=== PATIENT | female | born 1995 | race Caucasian/White ===

== ENCOUNTER 2018-06-22 19:15 | Emergency (ER) | payer OTHER ==
--- OUTSIDE RECORDS SUMMARY | 2018-06-22 20:00 | XMS REPORT | Continuity of Care Document ---
:1995 External Reference #:[id number] Author Name ERIK Mobley Address [address] [place] [address] [place] [address] Care Team Providers Name Role Phone No PCP Primary Care Physician Unavailable Payers Type Date Identification Numbers Payment Provider Subscriber Policy Number: [id number] [employer] Martina Wilson PayID: [id number] [address] [address] [place] [address] Advance Directives Description No Information Available Problems Description No Information Family History Date Family Member(s) Problem(s) Comments General Diabetes Father's side General Hypertension Mom's side Social History Type Date Description Comments Sex Unknown ETOH Use Occasionally consumes alcohol Tobacco Use Start: Unknown Patient has never smoked Smoking Status Reviewed: 06/18/18 Patient has never smoked Allergies, Adverse Reactions, Alerts Description No Known Drug Allergies Medications Medication Date Status Form Strength Qnty SIG Indications Ordering Provider Apriso Active Caps ER 0.375gm Unknown 000 24HR Prednisone Active Tablets 20mg once a day Unknown 000 Zyrtec Active Capsules 10mg take one Unknown Allergy 000 per day Sprintec 28 Active Tablets 0.25-35mg- as Unknown 000 mcg directed Iron Active Tablets Unknown 000 Immunizations Description No Information Available Vital Signs Date Vital Result Comment 06/18/2018 4:45pm BP Systolic 130 mmHg BP Diastolic 87 mmHg Heart Rate 86 /min Respiratory Rate 18 /min O2 % BldC Oximetry 98 % Body Temperature 98.4 F Weight 170.00 lb Height 69 inches 5'9" BMI (Body Mass Index) 25.1 kg/m2 Pain Level 4 Results Test Date Facility Test Result H/L Range Note CBC With 06/18/2018 [facility] White Blood 9.7 10 4.0- 10.[address] [place], [place] [id number] [phone] Red Blood Count 4.30 10 4.00-5.40 Hemoglobin 12.2 g/dL 12.0-15.5 Hematocrit 37.5 % 36.0-47.0 Mean Corpuscular Volume 87.2 fl 80.0-96.0 Mean Corpuscular Hemoglobin 28.4 pg 27.0-33.0 Mean Corpuscular HGB Conc 32.5 g/dL 32.0-36.5 Red Cell Distribution Width 12.5 % 11.5-14.5 Platelet Count, Automated 422 10 150-450 Neutrophils % 46.0 % 36.0-66.0 Lymph % 34.4 % 24.0-44.0 [place] % 8.2 % High 0.0-5.0 Eos % 10.0 % High 0.0-3.0 Baso % 0.8 % 0.0-1.0 Immature Granulocyte % 0.6 % 0-3.0 Nucleated Red Blood Cell % 0.0 % 0-0 Neutrophils # 4.4 10 1.8-7.7 Lymph # 3.3 10 1.5-6.5 [place] # 0.8 10 0.0-0.8 Eos # 1.0 10 High 0.0-0.50 Baso # 0.1 10 0.0-0.2 Comprehensive 06/18/2018 [facility] Glucose, 74 mg/dL 70- 100 Metabolic Profil [address] [place] [address] [phone] Blood Urea Nitrogen 10 mg/dL 7-18 Creatinine For GFR 0.62 mg/dL 0.55-1.30 Glomerular Filtration Rate > 60.0 >60 1 Sodium Level 139 mEq/L 136-145 Potassium Serum 4.2 mEq/L 3.5-5.1 Chloride Level 104 mEq/L 98-107 Carbon Dioxide Level 27 mEq/L 21-32 Anion Gap 8 mEq/L 8-16 Calcium Level 9.5 mg/dL 8.5-10.1 Ast/Sgot 16 U/L 7-37 Alt/SGPT 22 U/L 12-78 Alkaline Phosphatase 57 U/L 45-117 Bilirubin,Total 0.7 mg/dL 0.2-1.0 Total Protein 8.2 GM/DL 6.4-8.2 Albumin 3.7 GM/DL 3.2-5.2 Albumin/Globulin Ratio 0.82 Low 1.00-1.93 Laboratory test 06/18/2018 [facility] Thyroid 2.230 0.358- 3.[address] Stimulating uIU/[place] [address] Hormone [phone] Units are mL/min/1.73 m2 Chronic Kidney Disease Staging per NKF: Stage I & II GFR >=60 Normal to Mildly Decreased Stage III GFR 30-59 Moderately Decreased Stage IV GFR 15-29 Severely Decreased Stage V GFR <15 Very Little GFR Left ESRD GFR <15 on [employer] Procedures Date Code Description Status 06/18/2018 03217 Electrocardiogram Complete Completed Encounters Type Date Location Provider Dx Diagnosis Office Visit 06/18/2018 4:25p Main Office ERIK Mobley R00.2 Palpitations Plan of Treatment 06/18/2018 - Jess Chisholm PAR00.2 PalpitationsComments:EKG done today showed NSR without ST or T wave changes, no BBB, no axis deviation.Will check labs tor/o more urgent causes such as anemia or thyroid abnormality.Patient will be advised of any concerning results. Discussed with patient that sx may be related to prednisone taper or repeated use.Patient is from out of town and has been following with PCP for ongoing palpitations and dizziness over thepast 6 months.Patient was advised to push fluids, rest, and avoid strenuous exercise or actvity.Should continue to monitor sx and be seen if they return and persist in the ED.Ensure follow up with PCP upon returning home as well as cardiology.Patient verbalized understanding and was agreeable to plan.
[2018-06-22 21:25] LABS: ABS Basophils 0 10^3/ul (0-0.2); ABS Lymphocytes 2.9 10^3/ul (1.0-4.8); ABS Monocytes 0.5 10^3/ul (0-0.8); ABS Neutrophils 4.1 10^3/ul (1.5-7.7); ABS Nucleated RBC 0 10^3/ul; Eosinophil % 11.5 % (0-6); Hematocrit 36 % (35-47); Hemoglobin 12.1 g/dl (12.0-16.0); Lymphocyte % 34.1 % (25-47); Mean Corpuscular HGB Conc 34 g/dl (31-36); Mean Corpuscular Hemoglobin 29 pg (27-31); Mean Corpuscular Volume 85 fL (80-97); Mean Platelet Volume 7.1 um3 (7.4-10.4); Nucleated Red Blood Cells % 0; Platelet Count 389 10^3/ul (150-450); Red Cell Distribution Width 13 % (10.5-15); White Blood Count 8.6 10^3/ul (3.5-10.8)
--- NOTE | 2018-06-22 22:04 | RAD ---
EXAM: CT Head Without Intravenous Contrast CLINICAL HISTORY: 22 years old, female; Signs and symptoms; Dizziness TECHNIQUE: Axial computed tomography images of the head/brain without intravenous contrast. All CT scans at this facility use at least one of these dose optimization techniques: automated exposure control; mA and/or kV adjustment per patient size (includes targeted exams where dose is matched to clinical indication); or iterative reconstruction. COMPARISON: No relevant prior studies available. FINDINGS: Brain: No evidence of acute intracranial hemorrhage. No intracranial mass or mass effect. The doty matter and white matter are intact. Ventricles: No obstructive hydrocephalus. Bones/joints: Unremarkable. No acute fracture. Soft tissues: Unremarkable. Sinuses: Unremarkable as visualized. No acute sinusitis. Mastoid air cells: Unremarkable as visualized. No mastoid effusion. IMPRESSION: No acute findings.
[2018-06-22 22:06] LABS: EGFR Non-African American 128.7 (>60)
--- NOTE | 2018-06-23 00:33 | ED ---
Dizziness - HPI Summary HPI Summary: Pt is a 22 y/o female who presents to the ED c/o dizziness. She states shes been having lightheadedness and dizziness for the past 2 months, which has been worsening. Pt also c/o left-sided face and head pain with the sensation of plugged ears. Tonight she was washing dishes and became dizzy and uncoordinated , causing her to drop some dishes. Pt has ulcerative colitis and is currently taking Prednisone for a flare up. LKMP was 1.5 weeks ago - History Of Current Complaint Chief Complaint: EDDizziness Stated Complaint: DIZZY/WEAKNESS/HEADACHE Time Seen by Provider: 06/23/18 00:03 Hx Obtained From: Patient Onset/Duration: Resolved Timing: Weeks - 2 months Severity Currently: None Character: Lightheaded, Dizzy Aggravating Factor(s): Nothing Alleviating Factor(s): Nothing Associated Signs And Symptoms: Positive: Other: - Uncoordinated - Allergies/Home Medications Allergies/Adverse Reactions: Allergies Allergy/AdvReac Type Severity Reaction Status Date / Time No Known Allergies Allergy Verified 06/22/18 19:21 Home Medications: Home Medications Cetirizine* [ZyrTEC 10 MG TAB*] 10 mg PO DAILY 06/23/18 [History Confirmed 06/23] Iron 45 mg PO DAILY 06/23/18 [History Confirmed 06/23/18] Mesalamine (NF) [Apriso (NF)] 3 mg PO DAILY 06/23/18 [History Confirmed 06/23/18 ] Norgestimate-Ethinyl Estradiol [Sprintec 28 Day Tablet] 1 tab PO DAILY 06/23/18 [History Confirmed 06/23/18] predniSONE TAB* [Deltasone 10 MG TAB*] 10 mg PO DAILY 06/23/18 [History Confirmed 06/23/18] PMH/Surg Hx/FS Hx/Imm Hx GI History: Reports: Other GI Disorders - Ulcerative colitis Psychiatric History: Denies: Hx Schizophrenia - Surgical History Surgery Procedure, Year, and Place: None Infectious Disease History: No Infectious Disease History: Denies: Traveled Outside the [place] in Last 30 Days - Family History Known Family History: Negative: Blood Disorder - Social History Alcohol Use: Rare Hx Substance Use: No Substance Use Type: Reports: None Hx Tobacco Use: No Smoking Status (MU): Never Smoked Tobacco Review of Systems Positive: Other - Plugged ears Neurological: Other - Dizziness, lightheadedness Positive: Headache All Other Systems Reviewed And Are Negative: Yes Physical Exam - Summary Physical Exam Summary: Appearance: Well appearing, no pain distress Skin: warm, dry, reflects adequate perfusion Head/face: normal Eyes: EOMI, DENNY ENT: mucus membranes moist Neck: supple, non-tender, no adenopathy Respiratory: CTA, breath sounds present Cardiovascular: RRR, pulses symmetrical Abdomen: non-tender, soft Bowel Sounds: present Musculoskeletal: normal, strength/ROM intact Neuro: normal, sensory motor intact, A&Ox3 GCS: 15 Triage Information Reviewed: Yes Vital Signs On Initial Exam: Initial Vitals Temp Pulse Resp BP Pulse Ox 99.0 F 80 16 144/97 100 06/22/18 19:19 06/22/18 19:19 06/22/18 19:19 06/22/18 19:19 06/22/18 19:19 Vital Signs Reviewed: Yes Diagnostics - Vital Signs Vital Signs Temp Pulse Resp BP Pulse Ox 06/22/18 23:44 97.9 F 76 15 136/65 100 06/22/18 21:21 98.1 F 85 18 144/76 99 06/22/18 19:19 99.0 F 80 16 144/97 100 - Laboratory Lab Results: Lab Results 06/22/18 06/22/18 Range/Units 21:13 21:13 WBC 8.6 (3.5-10.8) 10^3/ul RBC 4.20 (4.00-5.40) 10^6/ul Hgb 12.1 (12.0-16.0) g/dl Hct 36 (35-47) % MCV 85 (80-97) fL MCH 29 (27-31) pg MCHC 34 (31-36) g/dl RDW 13 (10.5-15) % Plt Count 389 (150-450) 10^3/ul MPV 7.1 L (7.4-10.4) um3 Neut % (Auto) 47.6 (38-83) % Lymph % (Auto) 34.1 (25-47) % [place] % (Auto) 6.3 (0-7) % Eos % (Auto) 11.5 H (0-6) % Baso % (Auto) 0.5 (0-2) % Absolute Neuts (auto) 4.1 (1.5-7.7) 10^3/ul Absolute Lymphs (auto) 2.9 (1.0-4.8) 10^3/ul Absolute Monos (auto) 0.5 (0-0.8) 10^3/ul Absolute Eos (auto) 1.0 H (0-0.6) 10^3/ul Absolute Basos (auto) 0 (0-0.2) 10^3/ul Absolute Nucleated RBC 0 10^3/ul Nucleated RBC % 0 Sodium 136 (135-145) mmol/L Potassium 3.6 (3.5-5.0) mmol/L Chloride 102 (101-111) mmol/L Carbon Dioxide 25 (22-32) mmol/L Anion Gap 9 (2-11) mmol/L BUN 15 (6-24) mg/dL Creatinine 0.59 (0.51-0.95) mg/dL Est GFR ( Amer) 155.7 (>60) Est GFR (Non-Af Amer) 128.7 (>60) BUN/Creatinine Ratio 25.4 H (8-20) Glucose 108 H (70-100) mg/dL Calcium 9.5 (8.6-10.3) mg/dL TSH Pending Beta HCG, Quant < 0.60 mIU/mL Result Diagrams: 06/22/18 21:13 06/22/18 21:13 Lab Statement: Any lab studies that have been ordered have been reviewed, and results considered in the medical decision making process. - CT Brain CT CT Interpretation: No Acute Changes - No acute findings. ED physician reviewed radiology report. CT Interpretation Completed By: Radiologist Moises Course/Dx - Course Course Of Treatment: [employer] student with intermittent lightheadedness/ dizziness and history of ulcerative colitis. No recent changes in medication but is on prednisone. This could be causing her symptoms. Her labs, vital signs and physical exam is benign. Neurologically intact. Follow-up closely [facility]. - Diagnoses Differential Diagnosis/HQI/PQRI: Benign Paroxysmal Positional Vertigo, Hyperventilation, Hypovolemia, Labyrinthitis, Medication Reaction, Metabolic Abnormality Provider Diagnoses: Dizziness Discharge - Sign-Out/Discharge Documenting (check all that apply): Patient Departure - Discharge - Discharge Plan Condition: Improved Disposition: HOME Prescriptions: Meclizine HCl [Motion Sickness II] 25 mg PO TID PRN #30 tablet PRN Reason: Dizziness Patient Education Materials: Dizziness (ED) Referrals: [facility] - MRRodrigo [Primary Care Provider] - Additional Instructions: Follow-up with the neurologist on Friday as scheduled. You may need an MRI scan. The neurologist will help arrange this if needed. Follow-up with [facility] with a call tomorrow. Return with fever, worsening imbalance, new symptoms, worse or other concerns as discussed. Drink Plenty of fluids. - Billing Disposition and Condition Condition: IMPROVED Disposition: Home - Attestation Statements Document Initiated by Juan Carlos: Yes Documenting Scribe: Skyla Torres Provider For Whom Juan Carlos is Documenting (Include Credential): Ulises Beckford MD Scribe Attestation: Skyla Elmore scribed for Ulises Beckford MD on 06/23/18 at 0625. Scribe Documentation Reviewed: Yes Provider Attestation: The documentation as recorded by the Skyla jordan accurately reflects the service I personally performed and the decisions made by Ulises araujo MD
[2018-06-23 00:39] VITALS: BP 129/77
== END 2018-06-23 00:45 | disposition home or self-care (01) ==
LOC: ED 19:15
DX: R42 Dizziness and giddiness (principal)
CPT/HCPCS: 36415; 70450; 80048; 84443; 84702; 85025; 99283